=== PATIENT | male | born 1945 | race Caucasian/White ===

== ENCOUNTER → 2020-09-23 | Outpatient (CLI) | payer MEDICARE, OTHER ==
[~2020-09-23] MED LIST: ASPI-496 PO; ATOR10TA9 PO; DUTA0.5C PO; FAMO40TA4 PO; FEXO1TAB29 PO; GABA600T7 PO; LANS30CA PO; LEVO25TA2 PO; LEVO50TA5 PO; MUPI22OI2 TP; SUCR1ORA14 PO; TEST30SO TD; TRAM50TA2 PO
[2020-09-23 11:39] LABS: BASOPHILS % (AUTO) 1 % (0-1); EOSINOPHILS % (AUTO) 2 % (1-7); LYMPHOCYTES % (AUTO) 20 % (22-44); MEAN CORPUSCULAR HEMOGLOBIN 29.9 pg (27.5-34.5); MEAN CORPUSCULAR HGB CONC 33.8 g/dL (33.2-36.2); MEAN PLATELET VOLUME 10.1 fL (7.4-10.4); MONOCYTES % (AUTO) 7 % (2-9); NEUTROPHILS % (AUTO) 71 % (42-75); PLATELET COUNT 120 x10^3/uL (130-400); RED CELL DISTRIBUTION WIDTH 13.4 % (9.4-14.8)
[2020-09-23 11:40] LABS: HCT (SEDRATE) 45.6 % (39.2-51.8)
[2020-09-23 11:44] LABS: ALANINE AMINOTRANSFERASE 34 U/L (12-78); ALBUMIN 3.6 g/dL (3.4-5.0); CALCIUM 8.4 mg/dL (8.5-10.1); CHLORIDE 109 mmol/L (98-107); CREATININE 0.73 mg/dL (0.7-1.3)
[2020-09-23 11:45] LABS: ALKALINE PHOSPHATASE 98 U/L (45-117); BILIRUBIN,TOTAL 0.8 mg/dL (0.2-1.0); INTERNATIONAL NORMALIZED RATIO 1.13 (0.93-1.1); PROTHROMBIN TIME 12.1 Seconds (9.6-11.5); TOTAL PROTEIN 6.4 g/dL (6.4-8.2)
[2020-09-23 11:53] LABS: MICROSCOPIC NOT IND
[2020-09-23 12:07] LABS: ANION GAP 4 mmol/L (5-15)
[2020-09-23 12:37] LABS: MD SCAN
== END | disposition home or self-care (01) ==
LOC: STAR 09:28
PROVIDERS: ATTEND Orthopaedic Surgery Orthopaedic Surgery of the Spine
DX: Z01.818 Encounter for other preprocedural examination (principal); M54.16 Radiculopathy, lumbar region; M48.061 Spinal stenosis, lumbar region without neurogenic claudication; Z20.822 Contact with and (suspected) exposure to COVID-19
CPT/HCPCS: 36415; 71046; 80053; 80074; 81003; 85025; 85610; 85651; 85730; 87806; 93005; U0003; G0475

== ENCOUNTER 2020-09-29 09:15 | Day surgery (SDC) | payer MEDICARE, OTHER ==
[~2020-09-29] VITALS: Ht 172.7 cm; Wt 62.1 kg
[~2020-09-29 09:15] MED LIST changes: +FENTANYL PF 100 MCG/2ML ONE; +MIDAZOLAM 1 MG/ML, 2ML ONE
[2020-09-29 09:51] VITALS: BP 93/60
[2020-09-29] MEDS ORDERED: CHLORHEXIDINE 15 ML UDC ONE (09:54)
[2020-09-29] MEDS ORDERED: CHLORHEXIDINE 15 ML UDC MM ONE (10:00)
[2020-09-29] MEDS ORDERED: LACTATED RINGERS 1,000 ML IV SCH (10:00)
[2020-09-29] MEDS ORDERED: HYDROmorphone 2 MG/ML, 1ML ONE (10:25)
[2020-09-29] MEDS ORDERED: BUPIVACAINE/PF 0.5% ONE (10:35)
[2020-09-29] MEDS ORDERED: morphine SULFATE/PF 0.5 MG/ML, 10ML ONE ×2 (10:35→10:53)
[2020-09-29] MEDS ORDERED: VANCOMYCIN 1,000 MG ONE (10:35)
[2020-09-29] MEDS ORDERED: FENTANYL PF 100 MCG/2ML ONE (10:35)
[2020-09-29] MEDS ORDERED: EPINEPHRINE 1 MG/ML, 1ML ONE (10:36)
[2020-09-29] MEDS ORDERED: BACITRACIN 50,000 UNIT ONE (10:36)
[2020-09-29] MEDS ORDERED: LIDOCAINE/PF 1%, 30ML ONE (10:36)
[2020-09-29] MEDS ORDERED: BUPIVACAINE/PF 0.25% ONE (12:18)
[2020-09-29] MEDS ORDERED: DIPHENHYDRAMINE 50 MG/ML, 1ML IVPush PRN (12:30)
[2020-09-29] MEDS ORDERED: LABETALOL 5MG/ML, 20ML IV PRN (12:30)
[2020-09-29] MEDS ORDERED: hydrALAzine 20 MG/ML, 1ML IV PRN (12:30)
[2020-09-29] MEDS ORDERED: FENTANYL PF 100 MCG/2ML IV PRN (12:30)
[2020-09-29] MEDS ORDERED: METOCLOPRAMIDE 5 MG/ML, 2ML IVPush PRN (12:30)
[2020-09-29] MEDS ORDERED: HYDROmorphone 1 MG/ML, 1ML INJ IVPush PRN (12:30)
[2020-09-29] MEDS ORDERED: ONDANSETRON 2MG/ML, 2ML IVPush PRN (12:30)
[2020-09-29] MEDS ORDERED: METOPROLOL 1 MG/ML, 5ML IV PRN (12:30)
[2020-09-29] MEDS ORDERED: EPHEDRINE 50 MG/ML, 1ML IVPush PRN (12:30)
[2020-09-29] MEDS ORDERED: HALOPERIDOL 5 MG/ML IV PRN (12:30)
[2020-09-29] MEDS ORDERED: PROMETHAZINE 25 MG/ML, 1ML IVPush PRN (12:30)
[2020-09-29] MEDS ORDERED: ACETAMINOPHEN 325 MG TABLET PO PRN (12:30)
[2020-09-29] MEDS ORDERED: OXYcodone 5 MG/5 ML ORAL.SOL UDC PO PRN (12:30)
[2020-09-29] MEDS ORDERED: ROCURONIUM 10MG/ML,5ML ONE (16:47)
[2020-09-29] MEDS ORDERED: PHENYLEPHRINE 10 MG/ML ONE (16:47)
[2020-09-29] MEDS ORDERED: DEXAMETHASONE 4 MG/ML, 5ML ONE (16:47)
[2020-09-29] MEDS ORDERED: SUGAMMADEX 200 MG/2 ML IVPush ONE (16:47)
[2020-09-29] MEDS ORDERED: PROPOFOL 10 MG/ML, 20ML ONE (16:47)
[2020-09-29] MEDS ORDERED: ONDANSETRON 2MG/ML, 2ML ONE (16:47)
[2020-09-29] MEDS ORDERED: CEFAZOLIN 1,000 MG ONE (16:47)
[2020-09-29] MEDS ORDERED: PROPOFOL 10 MG/ML, 50ML ONE (16:47)
== END 2020-09-29 16:15 | disposition home or self-care (01) ==
LOC: OUT 09:15
PROVIDERS: ATTEND Orthopaedic Surgery Orthopaedic Surgery of the Spine
DX: M48.061 Spinal stenosis, lumbar region without neurogenic claudication (principal); M54.16 Radiculopathy, lumbar region; E11.9 Type 2 diabetes mellitus without complications; E78.5 Hyperlipidemia, unspecified; K22.4 Dyskinesia of esophagus; E03.9 Hypothyroidism, unspecified; K21.9 Gastro-esophageal reflux disease without esophagitis; N40.0 Benign prostatic hyperplasia without lower urinary tract symptoms; Z79.890 Hormone replacement therapy; Z79.899 Other long term (current) drug therapy; Z98.890 Other specified postprocedural states
CPT/HCPCS: 63042; 72100; 95938; 95941; C1751; J0171; J0690; J1100; J1170; J2250; J2274; J2370; J2405; J2704; J3010; J7120; J3370

== ENCOUNTER → 2020-11-23 | Outpatient (CLI) | payer MEDICARE, OTHER ==
[~2020-11-23] MED LIST changes: -FENTANYL PF 100 MCG/2ML ONE; -MIDAZOLAM 1 MG/ML, 2ML ONE
== END | disposition home or self-care (01) ==
LOC: CFH 12:55
PROVIDERS: ATTEND Orthopaedic Surgery Orthopaedic Surgery of the Spine
DX: R22.42 Localized swelling, mass and lump, left lower limb (principal)
CPT/HCPCS: 93970